=== PATIENT | female | born 1980 | race Two or more races ===

== ENCOUNTER 2024-03-27 10:39 | Emergency (ER) | payer OTHER ==
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
[2024-03-27] MEDS ORDERED: SILVER SULFADIAZINE 1% 25 GM TOP ONE (12:45)
[2024-03-27 13:09] VITALS: BP 115/76; TEMP 97.8; O2SAT 100
== END 2024-03-27 13:05 | disposition home or self-care (01) ==
LOC: ER 10:39
DX: T22.112A Burn of first degree of left forearm, initial encounter (principal)
CPT/HCPCS: 99283